=== PATIENT | male | born 1965 | race Caucasian/White ===

== ENCOUNTER 2020-08-07 00:51 | Outpatient (CLI) | payer SELFPAY | END 2020-08-07 00:52 | disposition critical access hospital (66) | LOC: EMS 00:51 | PROVIDERS: ATTEND Surgery | DX: R42 Dizziness and giddiness (principal); R00.2 Palpitations; R10.30 Lower abdominal pain, unspecified; R41.0 Disorientation, unspecified | CPT/HCPCS: A0425; A0427 ==

== ENCOUNTER 2020-08-07 01:06 | Emergency (ER) | payer SELFPAY ==
--- NOTE | 2020-08-07 01:17 | ED Physician Documentation ---
History of Present Illness - Stated complaint Stated Complaint: ABD PX/DIZZY - History obtained from History obtained from: Patient, EMS - History of Present Illness Timing: How many weeks ago (2-3 weeks (see narrative below)) Pain level now: 8 Improved by: nothing Worsened by: palpation (abdominal pain). ambulation (dizziness) Associated symptoms: headache, dizziness, palpitations, abdominal pain - Additonal information Additional information: BIBA. Patient called 911. Patient says he recently flew to [place] from [place] where he had been living; he says he was evaluated in an ED in [place] shortly after arriving there, evaluated for abdominal pain and diagnosed with diverticulitis. He says he took the prescribed course of two antibiotics (does not recall what they were), but continues to have abdominal pain that became worse over past 4 days. He is certain that he has diverticulitis again. Patient also c/o dizziness, JOHNSTON, feeling "disoriented" since head injury 2 weeks ago. He says he was staying in a hotel near [facility] 2 weeks ago and a chair in which he was sitting broke, causing him to fall backwards and strike his head on the ground. He says he was brought to a nearby ED and was diagnosed with concussion. Patient also c/o palpitations. He is staying in a hotel in [place]; he told EMS he didn't want to disturb others at the hotel in which he was staying. Review of Systems Constitutional: denies: Fever, Chills, Sweats Throat: denies: Sore throat Cardiac: reports: Palpitations. denies: Chest pain / pressure Respiratory: denies: Dyspnea, Cough GI: reports: Abdominal Pain, Abdominal Swelling. denies: Nausea, Vomiting, Constipation, Diarrhea : denies: Dysuria, Frequency Musculoskeletal: reports: Neck pain Neurologic: reports: Headache. denies: Generalized weakness, Focal weakness, Nu mbness PD PAST MEDICAL HISTORY - Past Medical History Neuro: Head injury GI: Diverticulitis - Past Surgical History Past Surgical History: No - Allergies Allergies/Adverse Reactions: Allergies Allergy/AdvReac Type Severity Reaction Status Date / Time No Known Drug Allergies Allergy Verified 08/07/20 01:21 PD ED PE NORMAL - Vitals Vital signs reviewed: Yes - General General: Alert and oriented X 3, No acute distress, Other (obese) - HEENT HEENT: Atraumatic, PERRL, EOMI, Moist mucous membranes - Neck Neck: Supple, no meningeal sign, No bony TTP - Cardiac Cardiac: RRR, No murmur - Respiratory Respiratory: No respiratory distress, Clear bilaterally - Abdomen Abdomen: Normal bowel sounds, Soft, Non distended - Back Back: No CVA TTP - Derm Derm: Normal color, Warm and dry, No rash - Neuro Neuro: Alert and oriented X 3, um rn 2-12 intact, No motor deficit, No sensory deficit, Normal speech Eye Opening: Spontaneous Motor: Obeys Commands Verbal: Oriented GCS Score: 15 PD ED PE EXPANDED - Abdomen Abdomen: Tender to palpation (periumbilical and bilateral lower quadrants without rebound or guarding) - Psych Psych: Other (tangential, requiring frequent redirection to question being asked) Results - Vitals Vitals: Vital Signs - 24 hr 08/07/20 08/07/20 01:17 04:20 Temperature 37.7 C H 37.0 C Heart Rate 77 69 Respiratory 18 24 Rate Blood Pressure 155/106 H 120/78 O2 Saturation 98 95 Oxygen O2 Source Room air - EKG (time done) No standard instances Rate: Rate (enter#) (74) Rhythm: NSR [place]: LAD Intervals: Normal WA QRS: Normal Ischemia: Normal ST segments Computer interpretation: Disagree with computer (disagree with atrial fibrillation (NSR), disagree with ST changes (no ST changes)) - Labs Labs: Laboratory Tests 08/07/20 08/07/20 08/07/20 01:50 02:00 02:00 WBC 8.8 RBC 4.62 L Hgb 17.3 Hct 48.7 MCV 105.4 H MCH 37.4 H MCHC 35.5 RDW 11.5 L Plt Count 168 MPV 9.1 Neut # (Auto) 4.1 Lymph # (Auto) 3.2 [place] # (Auto) 0.7 Eos # (Auto) 0.7 Baso # (Auto) 0.1 Absolute Nucleated RBC 0.00 Nucleated RBC % 0.0 PT INR APTT Sodium 141 Potassium 4.2 Chloride 104 Carbon Dioxide 25 Anion Gap 12.0 BUN 6 Creatinine 0.7 Estimated GFR (MDRD) 118 Glucose 109 H Calcium 9.2 Total Bilirubin 0.9 AST 113 H ALT 101 H Alkaline Phosphatase 60 Ammonia Troponin I High Sens Total Protein 7.7 Albumin 4.2 Globulin 3.5 Albumin/Globulin Ratio 1.2 Lipase 37 Urine Color YELLOW Urine Clarity CLEAR Urine pH 5.5 Ur Specific Kim <=1.005 Urine Protein NEGATIVE Urine Glucose (UA) NEGATIVE Urine Ketones NEGATIVE Urine Occult Blood NEGATIVE Urine Nitrite NEGATIVE Urine Bilirubin NEGATIVE Urine Urobilinogen 0.2 (NORMAL) Ur Leukocyte Esterase NEGATIVE Ur Microscopic Review NOT INDICATED Urine Culture Comments NOT INDICATED Urine Opiates Screen NEGATIVE Ur Oxycodone Screen NEGATIVE Urine Methadone Screen NEGATIVE Ur Propoxyphene Screen NEGATIVE Ur Barbiturates Screen NEGATIVE Ur Tricyclics Screen NEGATIVE Ur Phencyclidine Scrn NEGATIVE Ur Amphetamine Screen NEGATIVE U Methamphetamines Scrn NEGATIVE U Benzodiazepines Scrn NEGATIVE Urine Cocaine Screen NEGATIVE U Cannabinoids Screen NEGATIVE Ethyl Alcohol 290.0 08/07/20 08/07/20 08/07/20 02:00 02:00 02:50 WBC RBC Hgb Hct MCV MCH MCHC RDW Plt Count MPV Neut # (Auto) Lymph # (Auto) [place] # (Auto) Eos # (Auto) Baso # (Auto) Absolute Nucleated RBC Nucleated RBC % PT 13.0 H INR 1.2 APTT 32.5 Sodium Potassium Chloride Carbon Dioxide Anion Gap BUN Creatinine Estimated GFR (MDRD) Glucose Calcium Total Bilirubin AST ALT Alkaline Phosphatase Ammonia 42.6 H Troponin I High Sens 13.4 Total Protein Albumin Globulin Albumin/Globulin Ratio Lipase Urine Color Urine Clarity Urine pH Ur Specific [place] Urine Protein Urine Glucose (UA) Urine Ketones Urine Occult Blood Urine Nitrite Urine Bilirubin Urine Urobilinogen Ur Leukocyte Esterase Ur Microscopic Review Urine Culture Comments Urine Opiates Screen Ur Oxycodone Screen Urine Methadone Screen Ur Propoxyphene Screen Ur Barbiturates Screen Ur Tricyclics Screen Ur Phencyclidine Scrn Ur Amphetamine Screen U Methamphetamines Scrn U Benzodiazepines Scrn Urine Cocaine Screen U Cannabinoids Screen Ethyl Alcohol - Rads (name of study) CT A/P Radiology: Prelim report reviewed, See rad report CT head Radiology: Prelim report reviewed, See rad report chest xray Radiology: Prelim report reviewed, See rad report PD MEDICAL DECISION MAKING - ED course Complexity details: reviewed results, re-evaluated patient, considered differential, d/w patient ED course: Per patient, recently moved from [place], seen in ED in [place] and then somewhere in [place] near [facility] (he cannot recall which hospital nor what city/town in which it was located). I ask him who his PMD is, and he says it was someone in [place], where he apparently was living before moving to [place]. no emergent findings on w/u. CT does show fatty liver, and he has 0.290 blood alcohol level and mildly elevated AST, ALT, ammonia level. Advised to stop drinking and avoid acetaminophen/tylenol. Advised to follow up as he might need further testing/retesting regarding these findings, as well as reevaluation regarding his other ongoing symptoms. Advised he needs to establish himself with a local primary care provider as he is now living on [facility]. Departure - Departure Disposition: 01 Home, Self Care Clinical Impression: Dizziness Abdominal pain Qualifiers: Abdominal location: generalized Qualified Code(s): R10.84 - Generalized abdominal pain Alcohol intoxication Qualifiers: Complication of substance-induced condition: uncomplicated Qualified Code(s): F10.920 - Alcohol use, unspecified with intoxication, uncomplicated Condition: Good Instructions: ED Abdominal Pain Unkn Cause Male Comments: As we discussed, your liver enzyme tests were mildly elevated into an abnormal range, and your CT shows abnormal deposits of adipose tissue in the liver ("fatty liver"); I recommend avoiding acetaminophen (such as tylenol as well as any other products containing acetaminophen) and abstaining from further alcohol use. You need to follow up with a primary care provider for reassessment of the abnormalities as well as your ongoing dizziness and neck pain since your injury 2 weeks ago. Discharge Date/Time: 08/07/20 04:25
[2020-08-07] MEDS ORDERED: SODIUM CHLORIDE 0.9% 1,000 ML IV STA (01:41)
[2020-08-07] MEDS ORDERED: KETOROLAC 30 MG/ML VIAL IVP STA (01:41)
[2020-08-07 02:00] LABS: MUDS CUTOFF CONCENTRATIONS CUTOFF CONC BELOW:
[2020-08-07 02:06] LABS: BASOPHILS # (AUTO) 0.1 10^3/uL (0.0-0.1); BASOPHILS % (AUTO) 0.8 %; EOSINOPHILS # (AUTO) 0.7 10^3/uL (0.0-0.7); HGB - HEMOGLOBIN 17.3 g/dL (14.0-18.0); LYMPHOCYTES # (AUTO) 3.2 10^3/uL (1.5-3.5); LYMPHOCYTES % (AUTO) 36.1 %; MEAN CORPUSCULAR HEMOGLOBIN 37.4 pg (27.0-31.0); MEAN CORPUSCULAR HGB CONC 35.5 g/dL (32.0-36.0); MEAN CORPUSCULAR VOLUME 105.4 fL (80.0-94.0); MEAN PLATELET VOLUME 9.1 fL (7.4-11.4); MONOCYTES # (AUTO) 0.7 10^3/uL (0.0-1.0); MONOCYTES % (AUTO) 8.3 %; NEUTROPHILS # (AUTO) 4.1 10^3/uL (1.5-6.6); NEUTROPHILS % (AUTO) 46.5 %; PLT - PLATELET COUNT 168 10^3/uL (130-450); RED BLOOD COUNT 4.62 10^6/uL (4.70-6.10); RED CELL DISTRIBUTION WIDTH 11.5 % (12.0-15.0); WHITE BLOOD COUNT 8.8 x10^3/uL (4.8-10.8)
[2020-08-07 02:08] LABS: BILIRUBIN,URINE NEGATIVE (NEGATIVE); CLARITY,URINE CLEAR (CLEAR); GLUCOSE, URINE (UA) NEGATIVE (NEGATIVE); KETONES,URINE (UA) NEGATIVE (NEGATIVE); LEUKOCYTE ESTERASE, URINE NEGATIVE (NEGATIVE); NITRITE,URINE NEGATIVE (NEGATIVE); OCCULT BLOOD,URINE NEGATIVE (NEGATIVE); PH,URINE 5.5 PH (5.0-7.5); PROTEIN,URINE NEGATIVE (NEGATIVE); UROBILINOGEN,URINE 0.2 (NORMAL) E.U./dL (NORMAL)
[2020-08-07 02:17] LABS: INR 1.2 (0.8-1.2)
[2020-08-07 02:19] LABS: ALBUMIN 4.2 g/dL (3.2-5.5); ALBUMIN/GLOBULIN RATIO 1.2 (1.0-2.2); BILIRUBIN,TOTAL 0.9 mg/dL (0.2-1.0); CALCIUM 9.2 mg/dL (8.5-10.3); CREATININE 0.7 mg/dL (0.6-1.2); TOTAL PROTEIN 7.7 g/dL (6.7-8.2)
[2020-08-07 02:24] LABS: PARTIAL THROMBOPLASTIN TIME 32.5 secs (24.9-33.3)
[2020-08-07 02:25] LABS: AMPHETAMINE SCREEN,URINE NEGATIVE (NEGATIVE); BENZODIAZEPINES SCREEN, URINE NEGATIVE (NEGATIVE); COCAINE SCREEN URINE NEGATIVE (NEGATIVE); METHADONE SCREEN, URINE NEGATIVE (NEGATIVE); METHAMPHETAMINES SCREEN, URINE NEGATIVE (NEGATIVE); OPIATE SCREEN, URINE NEGATIVE (NEGATIVE); OXYCODONE SCREEN, URINE NEGATIVE (NEGATIVE); PROPOXYPHENE SCREEN, URINE NEGATIVE (NEGATIVE); TRICYCLIC ANTIDEPRESSANT,URINE NEGATIVE (NEGATIVE)
[2020-08-07] MEDS ORDERED: IBUPROFEN 600 MG TABLET PO STA (04:04)
[2020-08-07 04:26] VITALS: BP 120/78
--- NOTE | 2020-08-07 07:48 | XRAY Report ---
PROCEDURE: Chest 1 View X-Ray INDICATIONS: Chest pain TECHNIQUE: One view of the chest was acquired. COMPARISON: None FINDINGS: Surgical changes and devices: None. Lungs and pleura: No pleural effusions or pneumothorax. Lungs are clear. Mediastinum: Mediastinal contours appear normal. Heart size is normal. Bones and chest wall: No suspicious bony lesions. Overlying soft tissues appear unremarkable. IMPRESSION: No acute cardiopulmonary findings. Reviewed by: Nirmala Torres MD on 08/07/2020 7:47 AM PDT Approved by: Nirmala Torres MD on 08/07/2020 7:47 AM PDT Station ID: [id number]
--- NOTE | 2020-08-07 07:52 | CT Report ---
PROCEDURE: HEAD WO INDICATIONS: recent head injury, ongoing [place]ON TECHNIQUE: Noncontrast 4.5 mm thick angled axial sections acquired from the foramen magnum to the vertex. For r adiation dose reduction, the following was used: automated exposure control, adjustment of mA and/or kV according to patient size. COMPARISON: None. FINDINGS: Image quality: Excellent. CSF spaces: Basal cisterns are patent. No extra-axial fluid collections. Ventricles are normal in size and shape. Brain: No midline shift. No intracranial masses or hemorrhage. Esparza-white matter interface is norm al. Skull and face: Calvarium and visualized facial bones are intact, without suspicious lesions. Sinuses: There is bilateral mucosal thickening of the maxillary sinuses. Visualized sinuses and mast oids are otherwise clear. IMPRESSION: No acute intracranial findings. These findings are concordant with the overnight interpretation. Reviewed by: Nirmala Torres MD on 08/07/2020 7:51 AM PDT Approved by: Nirmala Torres MD on 08/07/2020 7:51 AM PDT Station ID: [id number]
--- NOTE | 2020-08-07 09:20 | CT Report ---
PROCEDURE: Abdomen/Pelvis WO INDICATIONS: abd. pain TECHNIQUE: Noncontrast 5 mm thick sections acquired from the diaphragms to the symphysis. 5 mm coronal and sagi ttal reformats were then performed. For radiation dose reduction, the following was used: automated exposure control, adjustment of mA and/or kV according to patient size. COMPARISON: None. FINDINGS: Image quality: Excellent. ABDOMEN: Lung bases: Lung bases are clear. Heart size is normal. Solid organs: Liver and spleen are normal in size. The liver is diffusely hypodense suggesting fatty infiltration. Gallbladder is unremarkable. Pancreas is normal in contours. No adrenal nodules. Ki dneys are normal in size, without hydronephrosis or nephrolithiasis. Peritoneum and bowel: Unenhanced bowel loops demonstrate normal wall thickness and caliber. The appe ndix is thin-walled. There are scattered sigmoid colon diverticular outpouchings within the sigmoid c olon. No mucosal thickening or pericolonic fat stranding. No free fluid or air. Nodes and vessels: No retroperitoneal or mesenteric adenopathy by size criteria. Aorta and inferior vena cava are normal in caliber. There are scattered atheromatous calcifications throughout the abd ominal aorta and iliac arteries. Miscellaneous: No ventral hernias. PELVIS: Genitourinary: Bladder wall thickness is normal. Miscellaneous: No inguinal hernias or adenopathy. Bones: No suspicious bony lesions. No vertebral body compression fractures. IMPRESSION: No acute intra-abdominal findings. Normal appendix. Diverticulosis. No acute diverticulitis. Hepatic steatosis. These findings are concordant with the overnight interpretation. Reviewed by: Nirmala Torres MD on 08/07/2020 9:18 AM PDT Approved by: Nirmala Torres MD on 08/07/2020 9:18 AM PDT Station ID: [id number]
== END 2020-08-07 04:25 | disposition home or self-care (01) ==
LOC: ED 01:06
DX: R10.84 Generalized abdominal pain (principal); R42 Dizziness and giddiness; F10.920 Alcohol use, unspecified with intoxication, uncomplicated; Y90.8 Blood alcohol level of 240 mg/100 ml or more; R74.8 Abnormal levels of other serum enzymes; K76.0 Fatty (change of) liver, not elsewhere classified; Z87.19 Personal history of other diseases of the digestive system
CPT/HCPCS: 36415; 70450; 71045; 74176; 80053; 80306; 80320; 81003; 82140; 83690; 84484; 85025; 85610; 85730; 93005; 96361; 96374; 99284; A9270; 81001; 87086

== ENCOUNTER 2020-08-19 23:23 | Outpatient (CLI) | payer SELFPAY | END 2020-08-19 23:59 | disposition critical access hospital (66) | LOC: EMS 23:23 | PROVIDERS: ATTEND Surgery | DX: R10.30 Lower abdominal pain, unspecified (principal) | CPT/HCPCS: A0425; A0429 ==

== ENCOUNTER 2020-08-19 23:39 | Emergency (ER) | payer SELFPAY ==
[2020-08-19] MEDS ORDERED: SODIUM CHLORIDE 0.9% 1,000 ML IV STA (23:52)
[2020-08-19] MEDS ORDERED: ONDANSETRON 4 MG/2 ML VIAL IVP STA (23:52)
[2020-08-19] MEDS ORDERED: HYDROmorphone 1 MG/ML CARPUJECT IVP STA (23:52)
--- NOTE | 2020-08-19 23:56 | ED Physician Documentation ---
History of Present Illness - Stated complaint Stated Complaint: ABD PX - Chief complaint Chief Complaint: Abd Pain - History obtained from History obtained from: Patient - Additonal information Additional information: The patient presents with complaints of abdominal pain. He has had this intermittently over the past 6 months. When asked where the pain is located he says throughout his lower abdomen. Sometimes it is on the left and sometimes on the right. He describes it as a sharp, cramping sensation. He says that it is similar to prior bouts of diverticulitis and that he thinks that is what is going on. He denies fevers, chills or sweats.He has had no nausea, vomiting, diarrhea or constipation. There has been no blood in his stools. He has never had any intra-abdominal surgeries. Additionally, he reports that he is supposed to be on blood pressure medications. However, his refills ran out. He has recently moved here from [place]. He has yet to establish care with a anumi calvin here. He took metoprolol today. However, he says that he is also supposed to be on Cardizem, lisinopril and Lasix. Review of Systems Constitutional: denies: Fever, Chills, Myalgias, Fatigue, Weight Loss, Sweats Eyes: denies: Decreased vision Nose: denies: Rhinorrhea / runny nose, Congestion Cardiac: reports: Palpitations, Pedal edema (Chronically). denies: Chest pain / pressure, Calf pain Respiratory: denies: Dyspnea, Cough GI: reports: Abdominal Pain. denies: Abdominal Swelling, Nausea, Vomiting, Constipation, Diarrhea, Hematemesis, Bloody / black stool : denies: Dysuria, Frequency Neurologic: denies: Focal weakness, Numbness, Headache PD PAST MEDICAL HISTORY - Past Medical History Past Medical History: Yes Cardiovascular: Hypertension Respiratory: Sleep apnea Neuro: Head injury GI: Diverticulitis - Past Surgical History Past Surgical History: No - Present Medications Home Medications: Ambulatory Orders Medication Instructions Recorded Confirmed Amox/Clav 875/125 [Augmentin 1 tab PO TID 10 Days #29 tablet 08/20/20 875/125] Diltiazem HCl [Cardizem LA] 240 mg PO DAILY #30 tab.er.24h 08/20/20 Hydrocodone/Acetaminophen [Clifford 1 each PO Q6HR PRN #14 tablet 08/20/20 5-325 Tablet] Lisinopril [Zestril] 40 mg PO DAILY #30 tablet 08/20/20 Metoprolol Succinate 100 mg PO BID #60 tab.er.24h 08/20/20 - Allergies Allergies/Adverse Reactions: Allergies Allergy/AdvReac Type Severity Reaction Status Date / Time No Known Drug Allergies Allergy Verified 08/19/20 23:47 - Social History Does the pt smoke?: No Smoking Status: Never smoker Does the pt drink ETOH?: Yes Does the pt have substance abuse?: No - Immunizations Immunizations are current?: Yes - POLST Patient has POLST: No PD ED PE NORMAL - Vitals Vital signs reviewed: Yes - General General: No acute distress - HEENT HEENT: Atraumatic, PERRL, EOMI - Neck Neck: Supple, no meningeal sign - Cardiac Cardiac: RRR, No murmur, No gallop, No rub - Respiratory Respiratory: Clear bilaterally - Abdomen Abdomen: Normal bowel sounds, Soft, Non distended, Other (Bilateral lower quadrant tenderness.) - Derm Derm: Warm and dry - Extremities Extremities: No deformity, No calf tenderness / cord, Other (1 + lower extremity edema.) - Psych Psych: Normal mood, Normal affect Results - Vitals Vitals: Vital Signs - 24 hr 08/19/20 08/20/20 08/20/20 23:40 00:21 00:46 Temperature 37.6 C H Heart Rate 106 H 100 96 Respiratory 16 21 21 Rate Blood Pressure 190/115 H 169/99 H 180/104 H O2 Saturation 99 99 98 08/20/20 08/20/20 08/20/20 01:14 01:58 02:34 Temperature 36.5 C Heart Rate 92 89 90 Respiratory 26 H 19 18 Rate Blood Pressure 144/92 H 166/98 H 154/94 H O2 Saturation 97 97 98 08/20/20 08/20/20 08/20/20 02:54 03:39 04:29 Temperature 36.8 C 36.5 C Heart Rate 87 91 86 Respiratory 20 22 19 Rate Blood Pressure 154/94 H 171/108 H 155/100 H O2 Saturation 98 96 99 08/20/20 08/20/20 05:00 05:25 Temperature 36.9 C 36.7 C Heart Rate 83 96 Respiratory 23 16 Rate Blood Pressure 145/92 H 143/93 H O2 Saturation 95 99 Oxygen O2 Source Room air - EKG (time done) 00:11 Rhythm: NSR [place]: RAD Ischemia: Other - Labs Labs: Laboratory Tests 08/20/20 08/20/20 08/20/20 00:10 00:10 00:10 WBC 8.7 RBC 4.26 L Hgb 15.5 Hct 45.2 MCV 106.1 H MCH 36.4 H MCHC 34.3 RDW 12.3 Plt Count 145 MPV 9.9 Neut # (Auto) 4.8 Lymph # (Auto) 2.3 [place] # (Auto) 1.1 H Eos # (Auto) 0.4 Baso # (Auto) 0.1 Absolute Nucleated RBC 0.00 Nucleated RBC % 0.0 Sodium 141 Potassium 3.6 Chloride 106 Carbon Dioxide 22 Anion Gap 13.0 BUN 8 Creatinine 0.7 Estimated GFR (MDRD) 118 Glucose 106 H Calcium 9.3 Total Bilirubin 0.9 AST 74 H ALT 76 H Alkaline Phosphatase 51 Troponin I High Sens 13.4 Total Protein 7.3 Albumin 4.1 Globulin 3.2 Albumin/Globulin Ratio 1.3 Lipase 32 Urine Color Urine Clarity Urine pH Ur Specific [place] Urine Protein Urine Glucose (UA) Urine Ketones Urine Occult Blood Urine Nitrite Urine Bilirubin Urine Urobilinogen Ur Leukocyte Esterase Ur Microscopic Review Urine Culture Comments 08/20/20 00:33 WBC RBC Hgb Hct MCV MCH MCHC RDW Plt Count MPV Neut # (Auto) Lymph # (Auto) [place] # (Auto) Eos # (Auto) Baso # (Auto) Absolute Nucleated RBC Nucleated RBC % Sodium Potassium Chloride Carbon Dioxide Anion Gap BUN Creatinine Estimated GFR (MDRD) Glucose Calcium Total Bilirubin AST ALT Alkaline Phosphatase Troponin I High Sens Total Protein Albumin Globulin Albumin/Globulin Ratio Lipase Urine Color YELLOW Urine Clarity CLEAR Urine pH 6.0 Ur Specific [place] 1.010 Urine Protein NEGATIVE Urine Glucose (UA) NEGATIVE Urine Ketones TRACE Urine Occult Blood NEGATIVE Urine Nitrite NEGATIVE Urine Bilirubin NEGATIVE Urine Urobilinogen 0.2 (NORMAL) Ur Leukocyte Esterase NEGATIVE Ur Microscopic Review NOT INDICATED Urine Culture Comments NOT INDICATED - Rads (name of study) CT abdomen and Pelvis Radiology: Prelim report reviewed, EMP read contemporaneously, Other (Sigmoid diverticulitis. No perforation or abscess identified.) PD MEDICAL DECISION MAKING - ED course Complexity details: reviewed results, re-evaluated patient, considered differential (Diverticulitis, appendicitis, bowel obstruction, colitis and constipation were considered among other potential causes of the patient's abdominal pain.), d/w patient ED course: I reviewed the results the patient's studies with him. He was symptomatically improved after treatment with IV fluids, Dilaudid and Zofran. Additionally, as noted his blood pressures are improving after he was reinitiated on his somatic meds and was treated with clonidine. The patient was provided prescriptions for metoprolol, diltiazem and lisinopril in addition to Augmentin for the diverticulitis. I reviewed the appropriate use, risks and side effects of these medications. Additionally, he is to establish close follow-up with the PCP for further evaluation and treatment. He was encouraged to call or return if his symptoms worsen or if new symptoms were to develop. 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 Discharge Date/Time: 08/20/20 05:30
[2020-08-20] MEDS ORDERED: cloNIDine 0.1 MG TABLET PO STA
[2020-08-20] MEDS ORDERED: diltiaZEM CD 120 MG CAPSULE PO STA
[2020-08-20 00:28] LABS: BASOPHILS # (AUTO) 0.1 10^3/uL (0.0-0.1); BASOPHILS % (AUTO) 0.6 %; EOSINOPHILS # (AUTO) 0.4 10^3/uL (0.0-0.7); HGB - HEMOGLOBIN 15.5 g/dL (14.0-18.0); LYMPHOCYTES # (AUTO) 2.3 10^3/uL (1.5-3.5); LYMPHOCYTES % (AUTO) 26.8 %; MEAN CORPUSCULAR HEMOGLOBIN 36.4 pg (27.0-31.0); MEAN CORPUSCULAR HGB CONC 34.3 g/dL (32.0-36.0); MEAN CORPUSCULAR VOLUME 106.1 fL (80.0-94.0); MEAN PLATELET VOLUME 9.9 fL (7.4-11.4); MONOCYTES # (AUTO) 1.1 10^3/uL (0.0-1.0); MONOCYTES % (AUTO) 12.4 %; NEUTROPHILS # (AUTO) 4.8 10^3/uL (1.5-6.6); NEUTROPHILS % (AUTO) 54.9 %; PLT - PLATELET COUNT 145 10^3/uL (130-450); RED BLOOD COUNT 4.26 10^6/uL (4.70-6.10); RED CELL DISTRIBUTION WIDTH 12.3 % (12.0-15.0); WHITE BLOOD COUNT 8.7 x10^3/uL (4.8-10.8)
[2020-08-20 00:34] LABS: ALBUMIN 4.1 g/dL (3.2-5.5); ALBUMIN/GLOBULIN RATIO 1.3 (1.0-2.2); BILIRUBIN,TOTAL 0.9 mg/dL (0.2-1.0); CALCIUM 9.3 mg/dL (8.5-10.3); CREATININE 0.7 mg/dL (0.6-1.2); TOTAL PROTEIN 7.3 g/dL (6.7-8.2)
[2020-08-20 00:48] LABS: BILIRUBIN,URINE NEGATIVE (NEGATIVE); GLUCOSE, URINE (UA) NEGATIVE (NEGATIVE); KETONES,URINE (UA) TRACE mg/dL (NEGATIVE); LEUKOCYTE ESTERASE, URINE NEGATIVE (NEGATIVE); NITRITE,URINE NEGATIVE (NEGATIVE); OCCULT BLOOD,URINE NEGATIVE (NEGATIVE); PROTEIN,URINE NEGATIVE (NEGATIVE); UROBILINOGEN,URINE 0.2 (NORMAL) E.U./dL (NORMAL)
[2020-08-20 00:49] LABS: CLARITY,URINE CLEAR (CLEAR)
[2020-08-20] MEDS ORDERED: HYDROmorphone 0.5 MG/0.5 ML SYRINGE IVP STA ×2 (01:03→03:27)
[2020-08-20] MEDS ORDERED: lisinopriL 5 MG TABLET PO STA (01:03)
[2020-08-20] MEDS ORDERED: IOVERSOL 320 100 ML VIAL IVP ONE (01:32)
[2020-08-20] MEDS ORDERED: AMOX/CLAV 875 MG/125 MG TABLET PO STA (03:27)
[2020-08-20 06:02] VITALS: BP 143/93
--- NOTE | 2020-08-20 15:20 | CT Report ---
PROCEDURE: Abdomen/Pelvis WO INDICATIONS: lower pain TECHNIQUE: Noncontrast 5 mm thick sections acquired from the diaphragms to the symphysis. 5 mm coronal and sagi ttal reformats were then performed. For radiation dose reduction, the following was used: automated exposure control, adjustment of mA and/or kV according to patient size. COMPARISON: Abdomen and pelvis CT 08/07/2020. FINDINGS: Image quality: Excellent. ABDOMEN: Lung bases: Lung bases are clear. Heart size is normal. Solid organs: Liver and spleen are normal in size. Diffuse fatty liver infiltration can be seen. G allbladder wall does not appear thickened. Pancreas is normal in contours. No adrenal nodules. K idneys are normal in size, without hydronephrosis or nephrolithiasis. Peritoneum and bowel: Moderate bowel wall thickening can be seen involving the sigmoid colon, with mi ld surrounding inflammatory changes. Diverticula formation can be seen within this region. No free ai r is seen. No loculated abscess collection can be seen. No significant free fluid is seen. Unenhanced bowel loops otherwise demonstrate normal wall thickness and caliber. The appendix is not definitely identified. No right lower quadrant inflammatory changes are seen. Nodes and vessels: No retroperitoneal or mesenteric adenopathy by size criteria. Aorta and inferior vena cava are normal in caliber. Miscellaneous: No ventral hernias. PELVIS: Genitourinary: Bladder wall thickness is normal. Miscellaneous: No inguinal adenopathy. There is a fat-containing left inguinal hernia seen. Bones: Remote right posterior rib fractures are seen. No suspicious bony lesions. No vertebral body compression fractures. IMPRESSION: Sigmoid diverticulitis, which has developed since the prior recent CT examination. No findings of perforation or abscess. Incidental note is made of: Remote right posterior rib fractures Fatty liver infiltration Fat-containing left inguinal hernia Note: No significant discrepancy from the preliminary report. Reviewed by: Stef Stringer MD on 08/20/2020 2:18 PM AKDT Approved by: Stef Stringer MD on 08/20/2020 2:18 PM AKDT Station ID: [id number]
== END 2020-08-20 05:30 | disposition home or self-care (01) ==
LOC: EDUNIT# → ED 23:39
DX: K57.32 Diverticulitis of large intestine without perforation or abscess without bleeding (principal); I10 Essential (primary) hypertension; K76.0 Fatty (change of) liver, not elsewhere classified; K40.90 Unilateral inguinal hernia, without obstruction or gangrene, not specified as recurrent; Z76.0 Encounter for issue of repeat prescription
CPT/HCPCS: 36415; 74176; 80053; 81003; 83690; 84484; 85025; 93005; 96374; 96375; 96376; 99284; A9270; J1170; 81001; 87086

== ENCOUNTER 2020-08-25 02:11 | Outpatient (CLI) | payer SELFPAY | END 2020-08-25 02:12 | disposition critical access hospital (66) | LOC: EMS 02:11 | PROVIDERS: ATTEND Surgery | DX: R10.9 Unspecified abdominal pain (principal); R11.0 Nausea; R19.7 Diarrhea, unspecified | CPT/HCPCS: A0425; A0429 ==

== ENCOUNTER 2020-08-25 02:25 | Emergency (ER) | payer SELFPAY ==
--- NOTE | 2020-08-25 02:39 | ED Physician Documentation ---
PD HPI ABD PAIN - Stated complaint Stated Complaint: ABD PX - History obtained from History obtained from: Patient - History of Present Illness Timing - onset: How many days ago (7-8) Timing - duration: Days (7-8) Timing - details: Gradual onset, Still present (He had lower mid to right abdominal pain for the last 7 or 8 days. It was similar to a prior recent episode of diverticulitis and did not completely resolved but was worse again. Seen and treated for diverticulitis with Augmentin and hydrocodone. He states not improved. worse pain all day) Quality: Cramping, Aching, Pain Location: RLQ, Suprapubic Radiation: Lower back Improved by: No: Eating, BM Worsened by: Position. No: Eating, Breathing, Palpation Associated symptoms: Nausea, Diarrhea (watery since starting the antibiotic 6 days ago.). No: Fever, Vomiting, Constipation Similar symptoms before: Diagnosis (diverticulitis) Recently seen: Emergency Dept (6 days ago and also another facility a month prior to that with Dx diverticulitis. Seen our ER 10th this month for local pain but no diverticulitis at that visit.) Review of Systems Constitutional: reports: Myalgias. denies: Fever, Chills Nose: denies: Rhinorrhea / runny nose, Congestion Throat: denies: Sore throat Cardiac: denies: Chest pain / pressure Respiratory: denies: Cough GI: reports: Abdominal Pain, Nausea, Diarrhea. denies: Abdominal Swelling, Vomiting, Constipation : denies: Dysuria, Frequency Skin: denies: Rash, Lesions PD PAST MEDICAL HISTORY - Past Medical History Cardiovascular: Hypertension Respiratory: Sleep apnea Neuro: Head injury GI: Diverticulitis - Past Surgical History Past Surgical History: No - Present Medications Home Medications: Ambulatory Orders Medication Instructions Recorded Confirmed Amox/Clav 875/125 [Augmentin 1 tab PO TID 10 Days #29 tablet 08/20/20 875/125] Diltiazem HCl [Cardizem LA] 240 mg PO DAILY #30 tab.er.24h 08/20/20 Hydrocodone/Acetaminophen [[place] 1 each PO Q6HR PRN #14 tablet 08/20/20 5-325 Tablet] Lisinopril [Zestril] 40 mg PO DAILY #30 tablet 08/20/20 Metoprolol Succinate 100 mg PO BID #60 tab.er.24h 08/20/20 Loperamide [Imodium] 4 mg PO TID PRN #24 capsule 08/25/20 Naproxen 375 mg PO TID #30 tablet 08/25/20 Oxycodone HCl/Acetaminophen 1 each PO Q4H PRN #16 tablet 08/25/20 [Oxycodon-Acetaminophen 7.5-325] Saccharomyces Boulardii [Florastor] 250 mg PO BID #20 capsule 08/25/20 Sulfamethox/Trimeth 800/160 1 each PO BID #14 tablet 08/25/20 [Bactrim Ds 800/160] metroNIDAZOLE [Flagyl] 500 mg PO BID #20 tablet 08/25/20 - Allergies Allergies/Adverse Reactions: Allergies Allergy/AdvReac Type Severity Reaction Status Date / Time No Known Drug Allergies Allergy Verified 08/25/20 02:29 - Living Situation Living Situation: reports: Alone Living Arrangement: reports: At home (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 ) - Social History Does the pt smoke?: No Smoking Status: Never smoker Does the pt drink ETOH?: Yes ETOH Use: Wine (1-2 glasses daily. Drank several glasses this evening to help with some pain. He states 2-3 glasses typically, but only few days weekly. He goes some days without and does not get withdrawal. Negative on CAGE questions.) Does the pt have substance abuse?: No - Family History Family history: denies: Aortic aneursym, Aortic dissection - Immunizations Immunizations are current?: Yes - POLST Patient has POLST: No PD ED PE NORMAL - Vitals Vital signs reviewed: Yes - General General: Alert and oriented X 3, Well developed/nourished, Other (appears in pain but is easily conversant. ) - HEENT HEENT: Pharynx benign - Neck Neck: Supple, no meningeal sign, No adenopathy - Cardiac Cardiac: RRR, No murmur - Respiratory Respiratory: Clear bilaterally - Abdomen Abdomen: Normal bowel sounds, Soft, Non distended, No organomegaly, Other (locally tender suprapubic to RLQ area without rebound nor percussion tenderness. ) - Male Male : Deferred - Rectal Rectal: Deferred - Back Back: No CVA TTP - Derm Derm: Normal color, Warm and dry - Neuro Neuro: Alert and oriented X 3, No motor deficit, Normal speech Results - Vitals Vitals: Vital Signs - 24 hr 08/25/20 08/25/20 08/25/20 02:29 02:39 03:25 Temperature 36.8 C 36.8 C 36.8 C Heart Rate 89 89 74 Respiratory 20 20 20 Rate Blood Pressure 164/101 H 164/101 H 117/71 O2 Saturation 97 97 96 08/25/20 08/25/20 04:21 04:40 Temperature 36.8 C 36.8 C Heart Rate 68 65 Respiratory 16 16 Rate Blood Pressure 122/75 120/72 O2 Saturation 93 94 Oxygen O2 Source Room air - Labs Labs: Laboratory Tests 08/25/20 08/25/20 03:00 03:00 WBC 8.3 RBC 4.29 L Hgb 15.4 Hct 45.6 MCV 106.3 H MCH 35.9 H MCHC 33.8 RDW 12.1 Plt Count 255 MPV 9.9 Neut # (Auto) 3.5 Lymph # (Auto) 3.0 [place] # (Auto) 1.0 Eos # (Auto) 0.8 H Baso # (Auto) 0.1 Absolute Nucleated RBC 0.00 Nucleated RBC % 0.0 Sodium 143 Potassium 4.1 Chloride 106 Carbon Dioxide 25 Anion Gap 12.0 BUN 7 Creatinine 0.8 Estimated GFR (MDRD) 101 Glucose 113 H Calcium 9.3 Magnesium 1.9 Total Bilirubin 0.6 AST 140 H ALT 122 H Alkaline Phosphatase 53 Total Protein 7.2 Albumin 3.9 Globulin 3.3 Albumin/Globulin Ratio 1.2 Lipase 43 Ethyl Alcohol 265.0 - Rads (name of study) abd CT Radiology: Prelim report reviewed (sigmoid diverticulitis similar to recent study. No complications. ), See rad report PD MEDICAL DECISION MAKING - ED course Complexity details: reviewed results (persistent diverticulitis without complication. Normal WBC/labs. Afebrile. Took couple doses of pain meds for improvement to comfortable enough level. ? if OBS criteria, though does not seem too sick. ), re-evaluated patient (improved pain though not resolved with IV meds. ), considered differential (persistent diverticulitis, with stated worse pain. Cang et labs/CT to ensure not abscessed nor perforated. Does not have general peritoneal signs nor fever. ), d/w patient, d/w personal consultant (Hospitalist, Dr. Burroughs, who felt pt did not meet OBS criteria, as able to just change oral meds (not ill, not vomiting, simple diverticulitis still).) Departure - Departure Disposition: 01 Home, Self Care Clinical Impression: Lower abdominal pain, Acute diverticulitis Condition: Stable Record reviewed to determine appropriate education?: Yes Instructions: ED Diverticulitis Follow-Up: Rosamaria Guo PA-C [Provider Admit Priv/Credential] - Prescriptions: Sulfamethox/Trimeth 800/160 [Bactrim Ds 800/160] 1 each PO BID #14 tablet metroNIDAZOLE [Flagyl] 500 mg PO BID #20 tablet Saccharomyces Boulardii [Florastor] 250 mg PO BID #20 capsule Loperamide [Imodium] 4 mg PO TID PRN #24 capsule PRN Reason: Diarrhea Naproxen 375 mg PO TID #30 tablet Oxycodone HCl/Acetaminophen [Oxycodon-Acetaminophen 7.5-325] 1 each PO Q4H PRN #16 tablet PRN Reason: Pain Comments: Stay well-hydrated. I would avoid alcohol for the next 7 to 10 days. Stop the Augmentin antibiotic you are currently taking. Change to combination of Bactrim and Flagyl antibiotics twice daily for a week. For the diarrhea you could use Imodium periodically. Your diarrhea can also be improved with a probiotic Florastor twice daily. Use anti-inflammatories such as naproxen twice daily initially for pain and to that add Tylenol or oxycodone if needed for worse pain. Recheck if not improving well over the next couple of days. Follow-up with the outpatient clinic as planned. Discharge Date/Time: 08/25/20 04:49
[2020-08-25] MEDS ORDERED: HYDROmorphone 1 MG/ML CARPUJECT IVP STA ×2 (02:42→03:37)
[2020-08-25] MEDS ORDERED: ONDANSETRON 4 MG/2 ML VIAL IVP STA (02:42)
[2020-08-25] MEDS ORDERED: SODIUM CHLORIDE 0.9% 1,000 ML IV STA (02:42)
[2020-08-25] MEDS ORDERED: KETOROLAC 15 MG/ML VIAL IVP STA ×2 (02:42→04:24)
[2020-08-25] MEDS ORDERED: cefTRIAXone 1 GM VIAL IVP STA (02:43)
[2020-08-25] MEDS ORDERED: LOPERAMIDE 2 MG CAPSULE PO STA (02:43)
[2020-08-25] MEDS ORDERED: metroNIDAZOLE 500 MG/100 ML 500 MG/100 ML BAG IV ONE (02:43)
[2020-08-25] MEDS ORDERED: WATER FOR INJECTION,STERILE 10 ML ONE (03:04)
[2020-08-25 03:20] LABS: BASOPHILS # (AUTO) 0.1 10^3/uL (0.0-0.1); EOSINOPHILS # (AUTO) 0.8 10^3/uL (0.0-0.7); EOSINOPHILS % (AUTO) 9.1 %; HGB - HEMOGLOBIN 15.4 g/dL (14.0-18.0); LYMPHOCYTES % (AUTO) 35.9 %; MEAN CORPUSCULAR HEMOGLOBIN 35.9 pg (27.0-31.0); MEAN CORPUSCULAR HGB CONC 33.8 g/dL (32.0-36.0); MEAN CORPUSCULAR VOLUME 106.3 fL (80.0-94.0); MEAN PLATELET VOLUME 9.9 fL (7.4-11.4); NEUTROPHILS # (AUTO) 3.5 10^3/uL (1.5-6.6); NEUTROPHILS % (AUTO) 41.6 %; PLT - PLATELET COUNT 255 10^3/uL (130-450); RED BLOOD COUNT 4.29 10^6/uL (4.70-6.10); RED CELL DISTRIBUTION WIDTH 12.1 % (12.0-15.0); WHITE BLOOD COUNT 8.3 x10^3/uL (4.8-10.8)
[2020-08-25 03:30] LABS: ALBUMIN 3.9 g/dL (3.2-5.5); ALBUMIN/GLOBULIN RATIO 1.2 (1.0-2.2); BILIRUBIN,TOTAL 0.6 mg/dL (0.2-1.0); CALCIUM 9.3 mg/dL (8.5-10.3); CREATININE 0.8 mg/dL (0.6-1.2); MAGNESIUM 1.9 mg/dL (1.7-2.8); TOTAL PROTEIN 7.2 g/dL (6.7-8.2)
[2020-08-25] MEDS ORDERED: ACETAMINOPHEN 325 MG TABLET PO STA (04:24)
[2020-08-25 04:41] VITALS: BP 120/72
--- NOTE | 2020-08-25 08:54 | CT Report ---
PROCEDURE: Abdomen/Pelvis WO INDICATIONS: persistent abd pain dx diverticulitis TECHNIQUE: Noncontrast 5 mm thick sections acquired from the diaphragms to the symphysis. 5 mm coronal and sagi ttal reformats were then performed. For radiation dose reduction, the following was used: automated exposure control, adjustment of mA and/or kV according to patient size. COMPARISON: 08/20/2020 and 08/07/2020. FINDINGS: Image quality: Excellent. ABDOMEN: Lung bases: Lung bases are clear. Heart size is normal. Atherosclerotic calcifications of the coron tonia arteries are present. Solid organs: Liver and spleen are normal in size. Gallbladder is unremarkable Pancreas is normal in contours. No adrenal nodules. Kidneys are normal in size, without hydronephrosis or nephrolithia sis. Peritoneum and bowel: No significant change in appearance of mild peridiverticular inflammatory gregory ges involving the proximal sigmoid colon. No evidence for perforation or abscess formation. Remainder of the visualized bowel loops demonstrate normal wall thickness and caliber. No free fluid or air. Nodes and vessels: No retroperitoneal or mesenteric adenopathy by size criteria. Aorta and inferior vena cava are normal in caliber. Atherosclerotic calcifications are noted in the abdominal aorta. Miscellaneous: No ventral hernias. PELVIS: Genitourinary: Bladder wall thickness is normal. Miscellaneous: No inguinal hernias or adenopathy. Bones: No suspicious bony lesions. No vertebral body compression fractures. IMPRESSION: Stable appearance of uncomplicated sigmoid diverticulitis. No significant discrepancy with initial interpretation by overnight radiologist. Reviewed by: Matthew Isbell MD on 08/25/2020 8:52 AM PDT Approved by: Matthew Isbell MD on 08/25/2020 8:52 AM PDT Station ID: [id number]
== END 2020-08-25 04:49 | disposition home or self-care (01) ==
LOC: EDUNIT# → ED 02:25
DX: K57.32 Diverticulitis of large intestine without perforation or abscess without bleeding (principal); I10 Essential (primary) hypertension
CPT/HCPCS: 36415; 74176; 80053; 80320; 83690; 83735; 85025; 96365; 96375; 96376; 99284; 99285; A9270; J1170

== ENCOUNTER 2020-09-02 05:00 | Outpatient (CLI) | payer SELFPAY | END 2020-09-02 05:01 | disposition critical access hospital (66) | LOC: EMS 05:00 | PROVIDERS: ATTEND Surgery | DX: R10.9 Unspecified abdominal pain (principal) | CPT/HCPCS: A0425; A0427 ==

== ENCOUNTER 2020-09-02 05:17 | Emergency (ER) | payer SELFPAY ==
--- NOTE | 2020-09-02 05:30 | ED Physician Documentation ---
PD HPI ABD PAIN - Stated complaint Stated Complaint: RIGHT FLANK PAIN - Chief complaint Chief Complaint: Abd Pain - History obtained from History obtained from: Patient - History of Present Illness Timing - onset: How many days ago (3) Timing - duration: Days (3) Quality: Pain Location: Other (right flank) Improved by: Position (standing) Worsened by: Moving, Position (lying down) Associated symptoms: No: Fever, Nausea, Vomiting, Diarrhea, Constipation Similar symptoms before: Has not had sx before Recently seen: Emergency Dept (4th [facility] ED visit in 1 month) - Additional information Additional information: BIBA, c/o right flank pain, waxing and waning. he has three previous visits to this ED in past few weeks for abdominal pain, says this pain is different in sensation and location. he says he finished the most recent antibiotics; he says he does not have prescription pain medication at home because he did not fill the most recent rx for pain medication (he says I dont like to take that stuff, it makes me feel woozy). given 4mg morphine and 4mg zofran en route with improvement. his flank pain started 3 days ago. he says it prevents him from sleeping. he says he has arranged for f/u with a local PMD (will be first appointment; he thinks it is with SAGAR Guo but not certain) with appointment coming up next week. patient was planning on taking the bus to the ED but he says pain became severe and thus he called 911 from bus stop Review of Systems Constitutional: reports: Reviewed and negative Cardiac: reports: Reviewed and negative Respiratory: reports: Reviewed and negative GI: reports: Reviewed and negative : denies: Dysuria, Frequency, Hematuria Skin: denies: Rash Musculoskeletal: reports: Reviewed and negative Neurologic: denies: Focal weakness, Numbness PD PAST MEDICAL HISTORY - Past Medical History Cardiovascular: Hypertension Respiratory: Sleep apnea Neuro: Head injury GI: Diverticulitis - Past Surgical History Past Surgical History: No - Present Medications Home Medications: Ambulatory Orders Medication Instructions Recorded Confirmed Amox/Clav 875/125 [Augmentin 1 tab PO TID 10 Days #29 tablet 08/20/20 875/125] Diltiazem HCl [Cardizem LA] 240 mg PO DAILY #30 tab.er.24h 08/20/20 Hydrocodone/Acetaminophen [[place] 1 each PO Q6HR PRN #14 tablet 08/20/20 5-325 Tablet] Lisinopril [Zestril] 40 mg PO DAILY #30 tablet 08/20/20 Metoprolol Succinate 100 mg PO BID #60 tab.er.24h 08/20/20 Loperamide [Imodium] 4 mg PO TID PRN #24 capsule 08/25/20 Naproxen 375 mg PO TID #30 tablet 08/25/20 Oxycodone HCl/Acetaminophen 1 each PO Q4H PRN #16 tablet 08/25/20 [Oxycodon-Acetaminophen 7.5-325] Saccharomyces Boulardii [Florastor] 250 mg PO BID #20 capsule 08/25/20 Sulfamethox/Trimeth 800/160 1 each PO BID #14 tablet 08/25/20 [Bactrim Ds 800/160] metroNIDAZOLE [Flagyl] 500 mg PO BID #20 tablet 08/25/20 Cyclobenzaprine [Flexeril] 10 mg PO TID PRN #20 tablet 09/02/20 oxyCODONE [Roxicodone] 5 mg PO Q6H PRN #14 tablet 09/02/20 - Allergies Allergies/Adverse Reactions: Allergies Allergy/AdvReac Type Severity Reaction Status Date / Time No Known Drug Allergies Allergy Verified 09/02/20 05:24 - Social History Does the pt smoke?: No Smoking Status: Never smoker Does the pt drink ETOH?: Yes Does the pt have substance abuse?: No - Immunizations Immunizations are current?: Yes - POLST Patient has POLST: No PD ED PE NORMAL - Vitals Vital signs reviewed: Yes - General General: Alert and oriented X 3, No acute distress, Well developed/nourished - Cardiac Cardiac: RRR, No murmur - Respiratory Respiratory: No respiratory distress, Clear bilaterally - Abdomen Abdomen: Normal bowel sounds, Soft, Non tender, Non distended - Back Back: No CVA TTP, No spinal TTP - Derm Derm: No rash - Neuro Neuro: No motor deficit, No sensory deficit Results - Vitals Vitals: Vital Signs - 24 hr 09/02/20 09/02/20 09/02/20 05:24 05:29 07:42 Temperature 36.7 C 36.7 C Heart Rate 73 73 72 Respiratory 20 20 16 Rate Blood Pressure 170/101 H 140/78 H 153/88 H O2 Saturation 100 100 98 Oxygen O2 Source Room air - Labs Labs: Laboratory Tests 09/02/20 09/02/20 09/02/20 05:41 05:41 05:49 WBC 7.2 RBC 4.40 L Hgb 15.8 Hct 45.8 MCV 104.1 H MCH 35.9 H MCHC 34.5 RDW 12.2 Plt Count 171 MPV 9.2 Neut # (Auto) 3.1 Lymph # (Auto) 2.6 [place] # (Auto) 0.7 Eos # (Auto) 0.7 Baso # (Auto) 0.1 Absolute Nucleated RBC 0.00 Nucleated RBC % 0.0 Sodium 143 Potassium 4.0 Chloride 108 Carbon Dioxide 24 Anion Gap 11.0 BUN < 5 L Creatinine 0.7 Estimated GFR (MDRD) 118 Glucose 100 Calcium 8.6 Total Bilirubin 1.0 AST 77 H ALT 67 H Alkaline Phosphatase 53 Total Protein 6.6 L Albumin 3.5 Globulin 3.1 Albumin/Globulin Ratio 1.1 Lipase 43 Urine Color YELLOW Urine Clarity CLEAR Urine pH 5.5 Ur Specific [place] 1.010 Urine Protein NEGATIVE Urine Glucose (UA) NEGATIVE Urine Ketones NEGATIVE Urine Occult Blood NEGATIVE Urine Nitrite NEGATIVE Urine Bilirubin NEGATIVE Urine Urobilinogen 0.2 (NORMAL) Ur Leukocyte Esterase NEGATIVE Ur Microscopic Review NOT INDICATED Urine Culture Comments NOT INDICATED PD MEDICAL DECISION MAKING - ED course Complexity details: reviewed old records, reviewed results, re-evaluated patient, considered differential, d/w patient ED course: HPI suggests differential that includes renal colic, biliary colic, musculoskeletal etiology. however, normal UA, unremarkable blood tests (mildly elevated AST, ALT but improved from previous). also, recent CT A/P shows no evidence of gallstones nor renal calculi. further emergent testing not indicated and he is comfortable and in NAD at time of discharge. he says he has upcoming appointment with newly-established PMD next week. Departure - Departure Disposition: 01 Home, Self Care Clinical Impression: Flank pain Condition: Good Instructions: ED Flank Pain Uncertain Cause Prescriptions: Cyclobenzaprine [Flexeril] 10 mg PO TID PRN #20 tablet PRN Reason: Spasms oxyCODONE [Roxicodone] 5 mg PO Q6H PRN #14 tablet PRN Reason: Pain Discharge Date/Time: 09/02/20 07:42
[2020-09-02] MEDS ORDERED: KETOROLAC 30 MG/ML VIAL IVP STA (05:33)
[2020-09-02 05:43] LABS: BASOPHILS # (AUTO) 0.1 10^3/uL (0.0-0.1); BASOPHILS % (AUTO) 0.7 %; EOSINOPHILS # (AUTO) 0.7 10^3/uL (0.0-0.7); EOSINOPHILS % (AUTO) 9.6 %; HGB - HEMOGLOBIN 15.8 g/dL (14.0-18.0); LYMPHOCYTES # (AUTO) 2.6 10^3/uL (1.5-3.5); LYMPHOCYTES % (AUTO) 36.5 %; MEAN CORPUSCULAR HEMOGLOBIN 35.9 pg (27.0-31.0); MEAN CORPUSCULAR HGB CONC 34.5 g/dL (32.0-36.0); MEAN CORPUSCULAR VOLUME 104.1 fL (80.0-94.0); MEAN PLATELET VOLUME 9.2 fL (7.4-11.4); MONOCYTES # (AUTO) 0.7 10^3/uL (0.0-1.0); MONOCYTES % (AUTO) 9.6 %; NEUTROPHILS # (AUTO) 3.1 10^3/uL (1.5-6.6); NEUTROPHILS % (AUTO) 43.2 %; PLT - PLATELET COUNT 171 10^3/uL (130-450); RED CELL DISTRIBUTION WIDTH 12.2 % (12.0-15.0); WHITE BLOOD COUNT 7.2 x10^3/uL (4.8-10.8)
[2020-09-02 05:56] LABS: BILIRUBIN,URINE NEGATIVE (NEGATIVE); GLUCOSE, URINE (UA) NEGATIVE (NEGATIVE); KETONES,URINE (UA) NEGATIVE (NEGATIVE); LEUKOCYTE ESTERASE, URINE NEGATIVE (NEGATIVE); NITRITE,URINE NEGATIVE (NEGATIVE); OCCULT BLOOD,URINE NEGATIVE (NEGATIVE); PH,URINE 5.5 PH (5.0-7.5); PROTEIN,URINE NEGATIVE (NEGATIVE); UROBILINOGEN,URINE 0.2 (NORMAL) E.U./dL (NORMAL)
[2020-09-02 05:57] LABS: CLARITY,URINE CLEAR (CLEAR)
[2020-09-02 05:59] LABS: ALBUMIN 3.5 g/dL (3.2-5.5); ALBUMIN/GLOBULIN RATIO 1.1 (1.0-2.2); ALKALINE PHOSPHATASE 53 IU/L (42-121); ALT ALANINE AMINOTRANSFERASE 67 IU/L (10-60); AST ASPARTATE AMINOTRANSFERASE 77 IU/L (10-42); BUN - BLOOD UREA NITROGEN < 5 mg/dL (6-20); CALCIUM 8.6 mg/dL (8.5-10.3); CARBON DIOXIDE - CO2 24 mmol/L (21-32); CHLORIDE 108 mmol/L (101-111); CREATININE 0.7 mg/dL (0.6-1.2); GLUCOSE 100 mg/dL (70-100); LIPASE 43 U/L (22-51); SODIUM 143 mmol/L (135-145); TOTAL PROTEIN 6.6 g/dL (6.7-8.2)
[2020-09-02 07:43] VITALS: BP 153/88
== END 2020-09-02 07:42 | disposition home or self-care (01) ==
LOC: EDUNIT# → ED 05:17
DX: R10.9 Unspecified abdominal pain (principal); Z87.19 Personal history of other diseases of the digestive system; I10 Essential (primary) hypertension
CPT/HCPCS: 36415; 80053; 81001; 81003; 83690; 85025; 87086; 96374; 99284

== ENCOUNTER 2020-09-24 22:08 | Outpatient (CLI) | payer SELFPAY | END 2020-09-24 22:09 | disposition EMS.NT | LOC: EMS 22:08 | PROVIDERS: ATTEND Surgery | DX: Z01.30 Encounter for examination of blood pressure without abnormal findings (principal); F41.9 Anxiety disorder, unspecified ==

== ENCOUNTER 2020-09-30 23:45 | Outpatient (CLI) | payer SELFPAY | END 2020-09-30 23:46 | disposition critical access hospital (66) | LOC: EMS 23:45 | PROVIDERS: ATTEND Surgery | DX: R51.9 Headache, unspecified (principal); R00.2 Palpitations | CPT/HCPCS: A0425; A0427 ==

== ENCOUNTER 2020-10-01 00:29 | Emergency (ER) | payer SELFPAY ==
[2020-10-01] MEDS ORDERED: diltiaZEM CD 240 MG CAPSULE PO STA (01:01)
[2020-10-01] MEDS ORDERED: FUROSEMIDE 40 MG/4 ML VIAL IVP STA (01:02)
[2020-10-01] MEDS ORDERED: LORazepam 2 MG/ML VIAL IVP STA (01:02)
--- NOTE | 2020-10-01 01:04 | ED Physician Documentation ---
PD HPI CHEST PAIN - Stated complaint Stated Complaint: JOHNSTON/ HEART PALPATATIONS - Chief complaint Chief Complaint: Cardiac - History obtained from History obtained from: Patient - History of Present Illness Timing - onset: How many days ago (2) Timing - onset during: Rest Timing - duration: Days (2) Timing - details: Gradual onset, Still present Quality: Pressure Location: Substernal Improved by: Rest Worsened by: Exertion Associated symptoms: Nausea, Vomiting, Other (headache). No: Shortness of air, Diaphoresis Similar symptoms before: Diagnosis (hypertensive urgency) Recently seen: Emergency Dept - Additional information Additional information: 55 y/o male with a history of hypertension feels that his blood pressure is out of control and he has chest pain. He has had prior admission for hypertensive urgency and he has had a recent visit to the ED for flank pain and at that time he was hypertensive but mild. Today he has headache and chest pressure (of course he specifically states it is not pain but pressure) and does not feel well. He normally lives in [place] and when COVID hit he lost his job in [employer] and [employer] and went to [place] for 5 months. There he had a visit to the ED for blood pressure and was released with scripts. 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 He notices the extra work of lifting and carrying boxes and he is quitting this job and moving back to [place]. Review of Systems Constitutional: denies: Fever, Chills, Myalgias Eyes: denies: Decreased vision Ears: denies: Ear pain Nose: denies: Rhinorrhea / runny nose, Congestion Throat: denies: Sore throat Cardiac: reports: Chest pain / pressure, Palpitations. denies: Pedal edema, Calf pain Respiratory: reports: Dyspnea. denies: Cough, Wheezing GI: denies: Abdominal Pain, Nausea, Vomiting : denies: Dysuria, Frequency Skin: denies: Rash Musculoskeletal: denies: Neck pain, Back pain, Extremity pain Neurologic: denies: Generalized weakness, Focal weakness, Numbness PD PAST MEDICAL HISTORY - Past Medical History Cardiovascular: Hypertension Respiratory: Sleep apnea Neuro: Head injury GI: Diverticulitis - Past Surgical History Past Surgical History: No - Present Medications Home Medications: Ambulatory Orders Medication Instructions Recorded Confirmed Diltiazem HCl [Cardizem LA] 240 mg PO DAILY #30 tab.er.24h 08/20/20 10/01/20 Lisinopril [Zestril] 40 mg PO DAILY #30 tablet 08/20/20 10/01/20 Metoprolol Succinate 100 mg PO BID #60 tab.er.24h 08/20/20 10/01/20 - Allergies Allergies/Adverse Reactions: Allergies Allergy/AdvReac Type Severity Reaction Status Date / Time No Known Drug Allergies Allergy Verified 09/02/20 05:24 - Social History Does the pt smoke?: No Smoking Status: Never smoker Does the pt drink ETOH?: Yes Does the pt have substance abuse?: No - Immunizations Immunizations are current?: Yes - POLST Patient has POLST: No PD ED PE NORMAL - Vitals Vital signs reviewed: Yes (marked hypertension ) - General General: Alert and oriented X 3, No acute distress, Well developed/nourished - HEENT HEENT: Atraumatic, PERRL, EOMI - Neck Neck: Supple, no meningeal sign, No bony TTP - Cardiac Cardiac: RRR, No murmur - Respiratory Respiratory: No respiratory distress, Clear bilaterally - Abdomen Abdomen: Normal bowel sounds, Soft, Non tender, Non distended, No organomegaly - Back Back: No CVA TTP, No spinal TTP - Derm Derm: Normal color, Warm and dry, No rash - Extremities Extremities: No deformity, No edema - Neuro Neuro: Alert and oriented X 3, service desk lead 2-12 intact, No motor deficit, No sensory deficit, Normal speech Eye Opening: Spontaneous Motor: Obeys Commands Verbal: Oriented GCS Score: 15 - Psych Psych: Normal mood, Normal affect Results - Vitals Vitals: Vital Signs - 24 hr 10/01/20 10/01/20 10/01/20 00:30 00:45 01:44 Temperature 37.2 C 37.2 C Heart Rate 73 73 75 Respiratory 20 20 Rate Blood Pressure 211/131 H 199/136 H 179/110 H O2 Saturation 92 96 94 10/01/20 10/01/20 10/01/20 02:09 02:22 02:29 Temperature Heart Rate 75 90 Respiratory 19 Rate Blood Pressure 172/108 H 172/104 H 144/98 H O2 Saturation 93 10/01/20 10/01/20 10/01/20 02:42 04:05 06:04 Temperature Heart Rate 78 70 67 Respiratory 19 19 Rate Blood Pressure 174/104 H 161/94 H 141/83 H O2 Saturation 95 92 Oxygen O2 Source Nasal cannula - EKG (time done) 0029 Rate: Rate (enter#) (83) Rhythm: NSR, LAE Ischemia: Q waves Compare to prior EKG: Changed from prior EKG (SPT 08-20-2020 the inferior forces are less today) Computer interpretation: Agree with computer - Labs Labs: Laboratory Tests 10/01/20 10/01/20 10/01/20 01:10 01:10 01:10 WBC 5.8 RBC 4.59 L Hgb 16.8 Hct 47.6 MCV 103.7 H MCH 36.6 H MCHC 35.3 RDW 12.3 Plt Count 161 MPV 9.3 Neut # (Auto) 3.0 Lymph # (Auto) 1.6 Rush # (Auto) 0.6 Eos # (Auto) 0.5 Baso # (Auto) 0.0 Absolute Nucleated RBC 0.00 Nucleated RBC % 0.0 Sodium 137 Potassium 3.3 L Chloride 101 Carbon Dioxide 24 Anion Gap 12.0 BUN 7 Creatinine 0.7 Estimated GFR (MDRD) 118 Glucose 109 H Calcium 9.6 Total Bilirubin 0.8 AST 67 H ALT 59 Alkaline Phosphatase 51 Troponin I High Sens 22.7 H* B-Natriuretic Peptide Total Protein 7.3 Albumin 3.9 Globulin 3.4 Albumin/Globulin Ratio 1.1 Lipase 34 Nasal Adenovirus (PCR) Nasal B. parapertussis DNA (PCR) Nasal Coronavir 229E PCR Nasal Coronavir HKU1 PCR Nasal Coronavir NL63 PCR Nasal Coronavir OC43 PCR Nasal Enterovir/Rhinovir PCR Nasal Influenza B PCR Nasal Parainfluen 1 PCR Nasal Parainfluen 2 PCR Nasal Parainfluen 3 PCR Nasal Parainfluen 4 PCR Nasal RSV (PCR) Nasal B.pertussis DNA PCR Nasal C.pneumoniae (PCR) Ashish Human Metapneumo PCR Nasal M.pneumoniae (PCR) Nasal SARS-CoV-2 (PCR) Ethyl Alcohol 50.8 10/01/20 10/01/20 10/01/20 01:10 04:07 04:35 WBC RBC Hgb Hct MCV MCH MCHC RDW Plt Count MPV Neut # (Auto) Lymph # (Auto) Rush # (Auto) Eos # (Auto) Baso # (Auto) Absolute Nucleated RBC Nucleated RBC % Sodium Potassium Chloride Carbon Dioxide Anion Gap BUN Creatinine Estimated GFR (MDRD) Glucose Calcium Total Bilirubin AST ALT Alkaline Phosphatase Troponin I High Sens 22.9 H* B-Natriuretic Peptide 144 H Total Protein Albumin Globulin Albumin/Globulin Ratio Lipase Nasal Adenovirus (PCR) NOT DETECTED Nasal B. parapertussis DNA (PCR) NOT DETECTED Nasal Coronavir 229E PCR NOT DETECTED Nasal Coronavir HKU1 PCR NOT DETECTED Nasal Coronavir NL63 PCR NOT DETECTED Nasal Coronavir OC43 PCR NOT DETECTED Nasal Enterovir/Rhinovir PCR NOT DETECTED Nasal Influenza B PCR NOT DETECTED Nasal Parainfluen 1 PCR NOT DETECTED Nasal Parainfluen 2 PCR NOT DETECTED Nasal Parainfluen 3 PCR NOT DETECTED Nasal Parainfluen 4 PCR NOT DETECTED Nasal RSV (PCR) NOT DETECTED Nasal B.pertussis DNA PCR NOT DETECTED Nasal C.pneumoniae (PCR) NOT DETECTED Ashish Human Metapneumo PCR NOT DETECTED Nasal M.pneumoniae (PCR) NOT DETECTED Nasal SARS-CoV-2 (PCR) NOT DETECTED Ethyl Alcohol - Rads (name of study) chest Radiology: Prelim report reviewed (Impression: No active cardiopulmonary disease demonstrated.), EMP read indepedently, See rad report CT angio chest Radiology: Prelim report reviewed (Impression: 1. Unremarkable CT angiogram. No abnormality pulmonary arteries or aorta is appreciated.2 No acute abnormality of the chest. 3 Chronic changes of osseous structures and benign- appearing lipoma in the right subscapular region noted.), EMP read indepedently, See rad report Procedures - IVC sono (time) 0100 Bedside IVC sono: IVC measures (cm) (2.32), High CVP PD MEDICAL DECISION MAKING - ED course Complexity details: reviewed old records, reviewed results, re-evaluated patient, considered differential, d/w patient ED course: 55 y/o male with a history of hypertension has run out of his diltiazem and has a hypertensive urgency/emergency. He has chest pressure as a symptom as well as a headache and vomiting. He has had a previous cath with clean coronaries 6 years ago. He has had prior episodes of hypertensive urgency. He has been out of his lasix for more than 2 months and he is uncertain why he is on this. Today I found his IVC to be plethoric and about 2.34cm consistent with some fluid retention. He is administered IV lasix 40mg and diltiazem 240mg CD and this does improve his blood pressure but the pressure in his chest persists. He has minimal elevation to the trop and a second trop is ordered. This is reassuringly similar and both values are low consistent with demand ischemia. His blood pressure is controlled now but his symptoms of chest pressure persist and a CT angio of the chest is obtained without evidence of dissection. He is diagnosed with hypertensive emergency with evidence of cardiac demand ischemia, CHF and vomiting with headache. Admission to observation is sought. Departure - Departure Disposition: ED Place in Observation Clinical Impression: Hypertensive emergency Chest pain Qualifiers: Chest pain type: precordial pain Qualified Code(s): R07.2 - Precordial pain Condition: Stable
[2020-10-01 01:17] LABS: BASOPHILS % (AUTO) 0.7 %; EOSINOPHILS # (AUTO) 0.5 10^3/uL (0.0-0.7); EOSINOPHILS % (AUTO) 9.4 %; HGB - HEMOGLOBIN 16.8 g/dL (14.0-18.0); LYMPHOCYTES # (AUTO) 1.6 10^3/uL (1.5-3.5); MEAN CORPUSCULAR HEMOGLOBIN 36.6 pg (27.0-31.0); MEAN CORPUSCULAR HGB CONC 35.3 g/dL (32.0-36.0); MEAN CORPUSCULAR VOLUME 103.7 fL (80.0-94.0); MEAN PLATELET VOLUME 9.3 fL (7.4-11.4); MONOCYTES # (AUTO) 0.6 10^3/uL (0.0-1.0); MONOCYTES % (AUTO) 10.4 %; NEUTROPHILS % (AUTO) 51.3 %; PLT - PLATELET COUNT 161 10^3/uL (130-450); RED BLOOD COUNT 4.59 10^6/uL (4.70-6.10); RED CELL DISTRIBUTION WIDTH 12.3 % (12.0-15.0); WHITE BLOOD COUNT 5.8 x10^3/uL (4.8-10.8)
[2020-10-01 01:30] LABS: ALBUMIN 3.9 g/dL (3.2-5.5); ALBUMIN/GLOBULIN RATIO 1.1 (1.0-2.2); BILIRUBIN,TOTAL 0.8 mg/dL (0.2-1.0); CALCIUM 9.6 mg/dL (8.5-10.3); CREATININE 0.7 mg/dL (0.6-1.2); TOTAL PROTEIN 7.3 g/dL (6.7-8.2)
[2020-10-01] MEDS ORDERED: NITROGLYCERIN SL 0.4 MG TABLET SL STA (02:16)
[2020-10-01] MEDS ORDERED: MORPHINE 2 MG/ML CARPUJECT IVP STA ×3 (02:32→06:16)
[2020-10-01] MEDS ORDERED: ONDANSETRON 4 MG/2 ML VIAL IVP STA (02:32)
[2020-10-01] MEDS ORDERED: IOVERSOL 320 100 ML VIAL IVP ONE ×2 (04:59→05:50)
[2020-10-01 06:03] LABS: C. PNEUMONIAE- RESP PCR PANEL NOT DETECTED
[2020-10-01] MEDS ORDERED: MORPHINE 10 MG/ML VIAL IVP STA (08:55)
--- NOTE | 2020-10-01 10:00 | CT Report ---
PROCEDURE: ANGIO CHEST W/WO INDICATIONS: chest pain hypertensive emergency CONTRAST: IV CONTRAST: Optiray 320 ml: 100 PO CONTRAST: *NO PO CONTRAST TECHNIQUE: After the administration of intravenous contrast, 2 mm thick sections acquired from the pulmonary api michelle to the posterior costophrenic angles. 3-dimensional maximum intensity projection (MIP) coronal a nd sagittal reformats were then acquired through the thorax. For radiation dose reduction, the follow ing was used: automated exposure control, adjustment of mA and/or kV according to patient size. COMPARISON: Correlation is made with the accompanying x-ray, 10/01/2020. Correlation is also made wi th overlapping portions of the prior abdomen and pelvis CT, 08/25/2020 FINDINGS: Image quality: Excellent. Pulmonary arteries: Pulmonary arteries are normal in size, and demonstrate no intraluminal filling d efects to suggest central pulmonary embolism. Lungs and pleura: Lungs are clear. No pleural effusions or pneumothorax. Central and peripheral ai rways are patent. Mediastinum: Heart size is normal, without pericardial effusion. Moderate to prominent coronary nicole ry calcifications can be seen. No mediastinal or hilar adenopathy. Thoracic aorta is normal in calib er and enhancement. Esophagus is normal in caliber, without hiatal hernia. Bones and chest wall: No suspicious bony lesions. Remote, healed right posterolateral rib fractures are seen inferiorly. Ribs and thoracic spine otherwise appear intact throughout. Age-appropriate deg enerative changes are seen. There is accentuated thoracic kyphosis. Mild dextroconvex scoliotic cur vature is seen. The thyroid is normal. No axillary or supraclavicular adenopathy. Incidental note is made of a right subscapular lipoma, as on series 6 image 46 and on series 9 image 87. Abdomen: Diffuse fatty liver infiltration can be seen. Visualized upper abdominal solid organs pavel ear normal in the early arterial phase of enhancement. IMPRESSION: Negative for pulmonary embolism. Incidental note is made of: Moderate to prominent coronary artery calcification Right subscapular lipoma Remote, healed right posterolateral rib fractures Fatty liver infiltration Note: No significant discrepancy from the preliminary report. Reviewed by: Stef Stringer MD on 10/01/2020 8:59 AM [facility] Approved by: Stef Stringer MD on 10/01/2020 8:59 AM AK Station ID: [id number]
--- NOTE | 2020-10-01 10:00 | ED Physician Documentation ---
ED Addendum - Addendum Addendum: 10/01/20 09:57 Upon my arrival at 7 AM the patient was already slotted for observation by a nighttime MD Dr. Kunz, who said that he discussed with nighttime hospitalist to admit for monitoring. I went in to check on the patient and he requested IV pain medicine for mild chest discomfort around 9 AM. I called the hospitalist for the daytime and let her know that I was ordering 5 mg of morphine for him, but she had not received signout about the patient, stating that the nighttime hospitalist told her that he rejected the patient for observation. On speaking with the patient he says that a hospitalist has not evaluated him yet. I called Dr. Kunz who recommended to have our daytime hospitalist, optometrist president/practice owner see him and give recommendations. The patient is in no acute distress at this time, denying chest pain at present. He states he ran out of two of his BP meds re cently and thinks that is the cause of his symptoms. His blood pressure has now normalized. He is requesting his morning medications. I will await recommendations from our hospitalist team. 10/01/20 10:02 10/01/20 12:34 Dr. Farah (hospitalist, optometrist president/practice owner) recommending discharge given flat troponin on repeat and patient is asymptomatic now with hypertension well managed. patient stated he ran out of meds a while ago but understands need to fill his scripts, take his bp meds and follow up with pmd. strict return precautions given.
--- NOTE | 2020-10-01 10:02 | XRAY Report ---
PROCEDURE: Chest 1 View X-Ray INDICATIONS: chest pain TECHNIQUE: One view of the chest was acquired. COMPARISON: 08/07/2020. Correlation is made with the subsequent performed chest CT, 10/01/2020. FINDINGS: Surgical changes and devices: None. Lungs and pleura: No pleural effusions or pneumothorax. Lungs are clear. Mediastinum: Mediastinal contours appear normal. Heart size is normal. Bones and chest wall: No suspicious bony lesions. Overlying soft tissues appear unremarkable. IMPRESSION: Unremarkable portable chest. Note: No significant discrepancy from the preliminary report. Reviewed by: Setf Stringer MD on 10/01/2020 9:01 AM [facility] Approved by: Stef Stringer MD on 10/01/2020 9:01 AM [facility] Station ID: [id number]
[2020-10-01] MEDS ORDERED: lisinopriL 5 MG TABLET PO STA (10:03)
[2020-10-01] MEDS ORDERED: METOPROLOL SUCCINATE 50 MG TABLET PO STA (10:05)
[2020-10-01] MEDS ORDERED: hydroCHLOROthiazide 25 MG TABLET PO STA (10:05)
[2020-10-01] MEDS ORDERED: hydroCHLOROthiazide 12.5 MG CAPSULE PO STA (10:14)
[2020-10-01] MEDS ORDERED: diltiaZEM 30 MG TABLET PO STA (10:44)
--- NOTE | 2020-10-01 12:30 | CONSULTATION NOTE ---
DATE OF SERVICE: 10/01/2020 Physician: Jodee Castro MD HISTORY OF PRESENT ILLNESS: This is a 55-year-old white male with a history of obesity, hypertension, sleep apnea, prior diverticulitis. 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 He found that the strict COVID restrictions there were even more difficult to find employment and then he moved to [facility] recently. 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 He has quit his job. He is planning to move back to [place]. therefore. The patient has had a history of headaches and chest pressure that occurs when he says his blood pressure is not controlled. He has a history of undergoing a coronary angiogram six years ago that he reports had shown normal coronary arteries. He has had prior episodes of hypertensive urgency for which he has needed inpatient medical care. The patient states that over the past two days, he has been getting lightheaded and developing his chest pressure that is mild and constant, he is able to take naps through it. He ran out of his Lasix for two months and states he is "unsure why he is on it." He also ran out of his Cardizem CD for blood pressure about a week ago. He presented to the emergency room with complaints of chest pressure that he rated 3/10, a headache that he rated 6/10. He was found to have a blood pressure of 190/115, heart rate of 106. He was administered Cardizem CD 240 mg orally and also given Lasix 40 mg IV, when his POC imaging IVC measurements showed plethora. He has had good diuresis while in the emergency room. His blood pressure has also improved significantly, down to the 170/100 range and then 145/90 and most recent 137/89. He underwent troponin testing x2. These are minimally elevated, but flat at 22.7 and 22.9, three hours apart. His chest pressure has resolved, his headache is almost completely resolved. He has bloodshot eyes. The nighttime emergency room doctor spoke to the Chartered Financial Analyst last night and they discussed possible Observation status, but the patient was not accepted for Observation or admission. The daytime emergency room provider has called me to determine what this patient's disposition should be and requested a consult be done in the ER. PAST MEDICAL HISTORY 1. Hypertension. 2. Obesity. 3. Sleep apnea. ALLERGIES: NONE. MEDICATIONS 1. Lasix 40 mg p.o. daily, but he ran out two months ago. 2. Cardizem CD 240 mg daily. 3. Metoprolol 100 mg b.i.d. 4. Lisinopril 40 mg daily. FAMILY HISTORY: No inherited diseases. 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 He drinks alcohol. REVIEW OF SYSTEMS: A comprehensive review of systems was performed and the pertinent positives are listed, the rest are negative. PHYSICAL EXAMINATION GENERAL: Morbidly obese white male with a body mass index of 35. He is in no distress and has very bloodshot eyes bilaterally. VITAL SIGNS: The current vital signs were blood pressure 169/113, heart rate of 68 in sinus rhythm, afebrile, room air saturation 94%. HEENT: Reveals obesity, scleral redness, extraocular movements intact. NECK: No JVD or carotid bruits, but is very obese. CHEST: Clear. HEART: Normal heart sounds, no murmurs. ABDOMEN: Obese with a pannus. I cannot rule out organomegaly. Normal bowel sounds. EXTREMITIES: No clubbing, cyanosis or edema. NEUROLOGIC: Grossly intact. LABORATORY DATA: Normal electrolytes except potassium 3.3. Troponins are 22.7 and 22.9. AST 67, ALT 59. Lipase normal. CBC unremarkable except MCV 103. The [employer] assay was done that showed no evidence of COVID. His alcohol level was 50.8 at 0100. EKG: Normal sinus rhythm at a rate of 83, left anterior fascicular block, left atrial enlargement, delayed R-wave progression. This is a similar EKG to July of this year. IMPRESSION/DIAGNOSES 1. Hypertension, uncontrolled. 2. Medication noncompliance. The patient was advised that he should stay on his prescription medications, not run out of them, and that the Lasix could be used p.r.n. for leg edema, but all the others should continue. 3. Alcohol use, which also gives him a propensity for uncontrolled hypertension. 4. Atypical chest pain for angina since it was constant, unrelenting and despite this, has an unremarkable EKG and no rise and fall of troponins. 5. Obesity. PLAN: Recommend that the patient resume all his blood pressure medications, not run out of them, the Lasix could be used p.r.n. leg edema. The patient does not need inpatient hospitalization or observation status as he has had resolution of his headache and chest pain symptoms and a flat set of 2 troponin values and correction of his hypertension. Low-salt diet should be reiterated. 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 He does have lisinopril and the metoprolol at home to take tomorrow, which he was advised to do. Weight loss is also advised for blood pressure management. Thank you for allowing us to participate in the care of this patient. TD: 10/01/2020 11:01 AYE
[2020-10-01 12:35] VITALS: BP 141/89
--- NOTE | 2020-10-03 17:10 | ED Physician Documentation ---
ED Addendum - Addendum Addendum: 10/03/20 17:09 Took call from pharmacy needing to clarify the prescription. After talking the pharmacist and looking at prior records it seems like the appropriate prescription was extended release Cardizem 240 mg once a day #30 and this is what I authorized.
== END 2020-10-01 12:45 | disposition home or self-care (01) ==
LOC: EDUNIT# → ED 00:29
DX: I16.1 Hypertensive emergency (principal); I10 Essential (primary) hypertension; T46.1X6A Underdosing of calcium-channel blockers, initial encounter; Z20.828 Contact with and (suspected) exposure to other viral communicable diseases
CPT/HCPCS: 0202U; 36415; 71045; 71275; 80053; 80320; 83690; 83880; 84484; 85025; 93005; 96374; 96375; 96376; 99284; 99285; A9270; J2060; Q9967